=== PATIENT | female | born 1990 | race Asian ===

== ENCOUNTER 2024-05-20 07:35 | Emergency (ER) | payer OTHER, SELFPAY ==
[2024-05-20 07:48] VITALS: PULSE 121; RESP 24; O2SAT 98
[2024-05-20 07:49] VITALS: BP 119/74; PULSE 120; RESP 20; TEMP 38.1; O2SAT 96; BMI 18.6
--- NOTE | 2024-05-20 07:56 | ED_ITS ---
HPI - URI/Sore Throat General Chief Complaint: Upper Respiratory Symptoms Stated Complaint: Pain Everywhere Time Seen by Provider: 05/20/24 07:42 Source: patient Mode of arrival: Ambulatory History of Present Illness HPI Narrative: Patient is a 34-year-old healthy female presenting today with body aches and fever. He has been ongoing the past few days. She was seen evaluated Gary barajas she says that they gave her Tylenol and sent her home. We called for records she was diagnosed with influenza a. Presenting today with all over body aches. She says she took Tylenol sometime this morning she has low-grade temp of a 100.5? in his tachycardic. She has pain everywhere. Denies cough. She has not drinking much fluid. Quite a tearful wanting something for pain. Related Data Allergies Allergy/AdvReac Type Severity Reaction Status Date / Time No Known Drug Allergies Allergy Verified 05/20/24 07:56 Patient History Social History Smoking Status: Current every day smoker Smoking Status: Current every day smoker tobacco type: vaping Exam Initial Vital Signs Initial Vital Signs: Vital Signs Pulse Rate 121 H 05/20/24 07:48 Respiratory Rate 24 05/20/24 07:48 Pulse Oximetry 98 05/20/24 07:48 GENERAL: Tearful thin 34-year-old female HEENT: Head atraumatic,EOMI, pupils reactive, face symmetric, moist mucous membranes NECK: Supple no meningeal signs PHARYNX: No erythema, no tonsillar exudate, no cervical lymphadenopathy CARDIOVASCULAR: Regular rate and rhythm without murmurs, rubs or gallops. RESPIRATORY: Breath sounds equal bilaterally, no wheezes rales or rhonchi. ABDOMEN: Soft, nontender. Normoactive bowel sounds all 4 quadrants. No guarding or rebound. : No CVA tenderness EXTREMITIES: Normal range of motion, no clubbing or edema. Neurovascularly intact NEUROLOGICAL: Alert and oriented x4.Normal gait and speech. SKIN: Warm, dry, no laceration, no petechiae, no rashes or lesions. Course Orders Ordered: ED Orders 05/20/24 08:10 CBC Auto Diff [Complete Blood Count AUTO DIFF] Stat CMP [Comprehensive Metabolic Panel] Stat CPK [Creatine Kinase] Stat Lactate (Lactic Acid) Stat 05/20/24 08:36 Urine Drug Screen, Rapid Stat 05/20/24 08:48 Urine Microscopic Stat Sodium Chloride (Normal Saline 0.9%) 1,000 mls @ 1,000 mls/hr IV BOLUS ONE Stop: 05/20/24 08:54 Last Admin: 05/20/24 08:07 Dose: 1,000 mls/hr Discontinued Medications Ketorolac Tromethamine (Ketorolac 30 Mg/Ml Vial) 15 mg IV NOW ONE Stop: 05/20/24 07:56 Last Admin: 05/20/24 08:08 Dose: 15 mg Vital Signs Vital signs: Vital Signs - 8 hr 05/20/24 07:48 05/20/24 07:49 05/20/24 08:00 Temperature 100.5 F H Pulse Rate 121 H 120 H 117 H Respiratory Rate 24 20 23 Blood Pressure 119/74 Pulse Oximetry 98 96 99 Oxygen Delivery Method Room Air Room Air MDM - URI/Sore Throat Lab Data 05/20/24 08:10 05/20/24 08:10 Labs: Lab Results 05/20/24 Range/Units 08:10 WBC 6.4 (4.5-11.0) X10^3/uL RBC 4.29 (4.0-5.2) X10^6/uL Hgb 12.0 (12.0-16.0) g/dL Hct 37.0 (36-46) % MCV 86.3 (80-100) fL MCH 28.0 (26-34) PG MCHC 32.5 (30-36) % RDW 17.5 H (11.6-14.8) % Plt Count 331 (150-400) X10^3/uL Neut % (Auto) 89.4 H (50-75) % Lymph % (Auto) 3.9 L (25-40) % [place] % (Auto) 3.6 (3-14) % Eos % (Auto) 2.6 (2-4) % Baso % (Auto) 0.5 (0-2) % Neut # (Auto) 5700 (7472-4357) /uL Lymph # (Auto) 200 L (0584-1045) /uL [place] # (Auto) 200 (0-900) /uL Eos # (Auto) 200 (0-450) /uL Baso # (Auto) 0 (0-100) /uL Sodium 136 L (137-145) mmol/L Potassium 3.3 L (3.4-5.1) mmol/L Chloride 107 (98-107) mmol/L Carbon Dioxide 21 L (22-32) mmol/L BUN 7 (7-17) mg/dL Creatinine 0.67 (0.52-1.04) mg/dL Estimated GFR > 60 (>60) mL/min BUN/Creatinine Ratio 10.4 (6-22) Glucose 119 H (70-100) mg/dL Lactate 1.4 (0.7-2.1) mmol/L Calcium 8.3 L (8.4-10.2) mg/dL Total Bilirubin 0.4 (0.2-1.3) mg/dL AST 30 (14-36) IU/L ALT 18 (<35) IU/L Alkaline Phosphatase 58 (38-126) U/L Total Creatine Kinase 45 (30-135) U/L Total Protein 7.1 (6.3-8.2) g/dL Albumin 4.1 (3.5-5.0) g/dL Globulin 3.0 (1.7-4.1) g/dL Albumin/Globulin Ratio 1.4 (1.0-2.8) Point of Care Testing Test Results Negative Urine Dip Bedside Urine Glucose Negative Bedside Urine Bilirubin - Negative Bedside Urine Ketone - Negative Urine Specific [place] 1.030 Bedside Urine Occult Blood - Negative Bedside Urine pH 6.0 Bedside Urine Protein - Negative Bedside Urine Urobilinogen - Negative Bedside Urine Nitrite - Negative Bedside Urine Leukocytes +/- 15 Esterase MDM Narrative Medical decision making narrative: MDM CC: Body aches Complicating co-morbidities: Healthy Medical records reviewed: Positive for influenza A at [facility] yesterday. Records have been received and reviewed she was tearful and a poor historian there as well. Noted to be tachycardic heart rate 123 which is similar to today. She had a respiratory panel only positive for influenza A she was given Tylenol. She had a chest x-ray which did not show any acute cardiopulmonary process she was complaining of some chest pain at that time. Differential considered: Exam documented above, pertinent findings include: Thin tearful abdomen soft breath sounds clear no peripheral edema Lab Test results independently reviewed as above. Pertinent findings: No leukocytosis WBC 6.4 hemoglobin 12.0 hematocrit 37 Lactate 1.4 CPK 45 Potassium 3.3 Sodium 130 or bicarb 21 BUN 7 creatinine 0.67 Urinalysis negative for UTI negative for Treatments: IV fluids Toradol Re-evaluations: Patient received Toradol still crying and tearful, however heart rate has improved. Discussion: 34-year-old female presents today with pain all over. She is positive for influenza A. I have received and reviewed records from yesterday's visit at [facility]. Today blood work is overall reassuring no evidence for rhabdomyolysis or lactic acidosis. She was given Toradol and normal saline. Encourage p.o. intake and conservative management. She started ripping off monitoring she did not want to finish her full L of IV fluids wanted something more for pain. I have explained that there is nothing else I can give her for her pain. Discussed with friend at bedside encourage electrolyte p.o. intake Tylenol Motrin supportive care only Discharge Plan Departure Patient Disposition: Home Clinical Impression: Influenza A Instructions: DI for Influenza -- Adult Activity Restrictions/Additional Instructions: *You have been diagnosed with influenza a *What to do: You have influenza. This is a respiratory illness which is self limiting. It will resolve within about 1 week. Please stay hydrated. Recommend Pedialyte or electrolyte fluids. Stay hydrated. Your body hurts due to fever. Best medication is Tylenol and ibuprofen *Continue to take medications as directed Tylenol 1000 mg every 6 hours for [id number] pain Ibuprofen 600 mg every 6 hours for [id number] pain *Follow up with your primary care provider in 2-3 days or call [phone] *Return to ER if you should have increased difficulty breathing not tolerating fluids or any new, worsening or concerning symptoms Stand Alone Forms: Patient Portal/API/Survey
[2024-05-20 08:00] VITALS: PULSE 117; RESP 23; O2SAT 99
[2024-05-20] MEDS: SODIUM CHLORIDE 0.9% 1,000 ML 1000 ML IV (08:07)
[2024-05-20] MEDS: KETOROLAC 30 MG/ML VIAL 15 MG IV (08:08)
[2024-05-20 08:19] LABS: Add Manual Diff / Slide Review NO; Basophils Absolute Auto 0 /uL (0-100); Basophils Percent Auto 0.5 % (0-2); Eosinophils Absolute Auto 200 /uL (0-450); Eosinophils Percent Auto 2.6 % (2-4); Lymphocytes Absolute Auto 200 /uL (1100-4500); Lymphocytes Percent Auto 3.9 % (25-40); Mean Corpuscular HGB Conc 32.5 % (30-36); Mean Corpuscular Volume 86.3 fL (80-100); Monocytes Absolute Auto 200 /uL (0-900); Monocytes Percent Auto 3.6 % (3-14); Neutrophils Absolute Auto 5700 /uL (1500-7000); Neutrophils Percent Auto 89.4 % (50-75); Platelet Count 331 X10^3/uL (150-400); Red Blood Cell Count 4.29 X10^6/uL (4.0-5.2); Red Cell Distribution Width 17.5 % (11.6-14.8); White Blood Cell Count 6.4 X10^3/uL (4.5-11.0)
[2024-05-20 08:29] LABS: Alanine Aminotransferase 18 IU/L (<35); Albumin 4.1 g/dL (3.5-5.0); Albumin Globulin Ratio 1.4 (1.0-2.8); Alkaline Phosphatase 58 U/L (38-126); Aspartate Aminotransferase 30 IU/L (14-36); BUN Creatinine Ratio 10.4 (6-22); Bilirubin Total 0.4 mg/dL (0.2-1.3); Blood Urea Nitrogen 7 mg/dL (7-17); Calcium 8.3 mg/dL (8.4-10.2); Carbon Dioxide 21 mmol/L (22-32); Chloride 107 mmol/L (98-107); Creatine Kinase 45 U/L (30-135); Estimated Glomerular Filt Rate > 60 mL/min (>60); Glucose 119 mg/dL (70-100); HEMOLYSIS < 15 (0-50); Lactate (Lactic Acid) 1.4 mmol/L (0.7-2.1); Potassium 3.3 mmol/L (3.4-5.1); Sodium 136 mmol/L (137-145); Total Protein 7.1 g/dL (6.3-8.2)
[2024-05-20 08:30] VITALS: PULSE 104; RESP 20; O2SAT 97
--- NOTE | 2024-05-20 08:31 | PC.NURSE ---
Reassessed pt and pt states that they are still a 10/[address] Purvis notified of pt status. Pt moaning and crying and yelling at staff when they enter to the room.
--- NOTE | 2024-05-20 08:36 | PC.NURSE ---
Pt ambulated to bathroom independently with steady gait.
[2024-05-20 08:39] VITALS: BP 113/64; PULSE 110; TEMP 37.2; O2SAT 98
--- NOTE | 2024-05-20 08:50 | PC.NURSE ---
Pt requesting additional pain medications at this time pt states If you're not going to do anything then send me home RN notified Dr. Purvis, no new orders at this time.
[2024-05-20 09:05] LABS: Urine Volume 10mL (spun)
[2024-05-20 09:08] LABS: Bacteria Urine Many (>30); RBC Urine None Seen (0-5/HPF); WBC Urine 1-5/HPF (0-5/HPF)
[2024-05-20 09:09] LABS: Culture Indicated Urine Specimen Cultured; Squamous Epithelial Cell Urine 1-5 /HPF (0-5/HPF)
[2024-05-20 09:12] LABS: Ur Creatinine Normal (Normal); Ur Specific Gravity Normal (Normal); Urine Amphetamines Positive (Negative); Urine Barbiturates Negative (Negative); Urine Benzodiazepines Negative (Negative); Urine Cocaine Negative (Negative); Urine MDMA Negative (Negative); Urine Methadone Negative (Negative); Urine Methamphetamines Positive (Negative); Urine Opiates Negative (Negative); Urine Oxycodone Negative (Negative); Urine Phencyclidine Negative (Negative); Urine THC Negative (Negative); Urine Tricyclic Antidepressant Negative (Negative); Urine pH Normal (Normal)
== END 2024-05-20 09:03 | disposition home or self-care (01) ==
PROVIDERS: Emergency Provider Emergency Medicine
DX: J10.1 Influenza due to other identified influenza virus with other respiratory manifestations (principal); R00.0 Tachycardia, unspecified; F17.200 Nicotine dependence, unspecified, uncomplicated
CPT/HCPCS: 36415; 80053; 80305; 81003; 81015; 81025; 82550; 83605; 85025; 87077; 87086; 87186; 96374; 99284; J1885